=== PATIENT | female | born 1945 | race African-American/Black ===

== ENCOUNTER 2021-04-19 08:02 | Day surgery (SDC) | payer OTHER, BC ==
[2021-04-15 19:12] VITALS: BMI 29.8
[2021-04-19 08:41] VITALS: TEMP 98
[2021-04-19] MEDS ORDERED: PROPOFOL 20 ML ONE ×4 (09:48)
[2021-04-19 11:14] VITALS: BP 128/60; PULSE 72
== END 2021-04-19 11:14 | disposition home or self-care (01) ==
LOC: FASU-ENDO 08:02
PROVIDERS: ATTEND Internal Medicine Gastroenterology
PROC: 0DJD8ZZ Inspection of Lower Intestinal Tract, Via Natural or Artificial Opening Endoscopic (ICD-10-PCS; principal; 2021-04-19 10:04)
DX: K92.1 Melena (principal); K57.30 Diverticulosis of large intestine without perforation or abscess without bleeding; K64.1 Second degree hemorrhoids